=== PATIENT | female | born 1995 | race Two or more races ===

== ENCOUNTER 2020-09-29 16:53 | Emergency (ER) | payer MEDICAID ==
[~2020-09-29] VITALS: Ht 160 cm; Wt 83.5 kg
[2020-09-29 18:27] VITALS: BP 142/97
[2020-09-29 18:56] LABS: Urine Bacteria FEW /hpf (None Seen); Urine Blood 1+ /uL (Negative); Urine Mucus FEW (None Seen); Urine Specific Gravity 1.045 (1.001-1.035); Urine WBC 1 /hpf (0 - 5)
== END 2020-09-29 20:10 | disposition left against medical advice (07) ==
LOC: ER 16:53
DX: R10.9 Unspecified abdominal pain (principal); Z53.21 Procedure and treatment not carried out due to patient leaving prior to being seen by health care provider
CPT/HCPCS: 81001